=== PATIENT | female | born 1980 | race African-American/Black ===

== ENCOUNTER 2016-08-07 14:25 | Emergency (ER) | payer BC ==
--- NOTE | 2016-08-07 14:59 | ER Document Report ---
ED Medical Screen (RME) - General Chief Complaint: Dizziness Stated Complaint: PALPITATIONS Time seen by provider: 14:55 Mode of Arrival: Ambulatory Information source: Patient Notes: 36 yo female presents to ed for dizziness, rapid heartbeat started last night. She was at work became dizzy and heart rate went up to 108. No CaD hx no family hx of CAD TRAVEL OUTSIDE OF THE [place] IN LAST 30 DAYS: No - HPI Onset: Yesterday Onset/Duration: Intermittent Quality of pain: No pain Severity: None Pain Level: Denies Associated Symptoms: Dizzy/lightheaded, Other - rapid heart beat. When laying down she states her left side goes numb Exacerbated by: Supine Relieved by: Denies Similar symptoms previously: Yes Recently seen / treated by doctor: No - Related Data Smoking: Cigarettes - 10 cigs a day Frequency of alcohol use: Occasional Drug Abuse: None Allergies/Adverse Reactions: iodine Allergy (Verified 12/27/15 11:41) shrimp Allergy (Severe, Uncoded 12/27/15 11:41) swelling shell fish Allergy (Intermediate, Uncoded 12/27/15 11:41) swelling Past Medical History Past Surgical History: Reports: Hx Hysterectomy Physical Exam - Vital signs Vitals: Temp Pulse Resp BP Pulse Ox 98.0 F 92 16 127/83 H 99 08/07/16 14:50 08/07/16 14:50 08/07/16 14:50 08/07/16 14:50 08/07/16 14:50 Course - Vital Signs Vital signs: Temp Pulse Resp BP Pulse Ox 98.0 F 92 16 127/83 H 99 08/07/16 14:50 08/07/16 14:50 08/07/16 14:50 08/07/16 14:50 08/07/16 14:50
[2016-08-07 15:17] LABS: ABSOLUTE BASOPHILS # (AUTO) 0.1 10^3/uL (0.0-0.2); ABSOLUTE EOSINOPHILS # (AUTO) 0.2 10^3/uL (0.0-0.6); ABSOLUTE LYMPHOCYTES (AUTO) 2.2 10^3/uL (0.5-4.7); ABSOLUTE MONOCYTES (AUTO) 0.8 10^3/uL (0.1-1.4); ABSOLUTE NEUT (AUTO) 6.6 10^3/uL (1.7-8.2); BASOPHILS % (AUTO) 0.8 % (0-2); EOSINOPHILS % (AUTO) 1.5 % (0-6); HEMATOCRIT 42.3 % (36.0-47.0); HEMOGLOBIN 14.4 g/dL (12.0-15.5); HGB HCT DIFFERENCE 0.9; LYMPHOCYTES % (AUTO) 22.1 % (13-45); MEAN CORPUSCULAR HEMOGLOBIN 30.8 pg (27.0-33.4); MEAN CORPUSCULAR HGB CONC 34.1 g/dL (32.0-36.0); MEAN CORPUSCULAR VOLUME 90 fl (80-97); MONOCYTES % (AUTO) 7.9 % (3-13); RED BLOOD COUNT 4.69 10^6/uL (3.72-5.28); SEGMENTED NEUTROPHILS % (AUTO) 67.7 % (42-78); WHITE BLOOD COUNT 9.8 10^3/uL (4.0-10.5)
[2016-08-07 15:45] LABS: ALANINE AMINOTRANSFERASE 38 U/L (9-52); ALBUMIN 4.6 g/dL (3.5-5.0); ALKALINE PHOSPHATASE 66 U/L (38-126); ANION GAP 13 (5-19); ASPARTATE AMINO TRANSFERASE 22 U/L (14-36); BILIRUBIN,TOTAL 0.8 mg/dL (0.2-1.3); BLOOD UREA NITROGEN 10 mg/dL (7-20); CALCIUM 9.8 mg/dL (8.4-10.2); CARBON DIOXIDE 28 mmol/L (22-30); CHLORIDE 102 mmol/L (98-107); CREATINE KINASE 331 U/L (30-135); GLUCOSE 105 mg/dL (75-110); LIPASE 115.5 U/L (23-300); POTASSIUM 3.9 mmol/L (3.6-5.0); SODIUM 143.3 mmol/L (137-145); TOTAL PROTEIN 7.6 g/dL (6.3-8.2)
[2016-08-07 15:56] LABS: CREATINE KINASE MB 0.77 ng/mL (<4.55)
[2016-08-07 15:57] LABS: TROPONIN I < 0.012 ng/mL
[2016-08-07 16:08] LABS: APPEARANCE,URINE CLEAR; BILIRUBIN,URINE NEGATIVE (NEGATIVE); GLUCOSE, URINE NEGATIVE (NEGATIVE); KETONES,URINE NEGATIVE (NEGATIVE); LEUKOCYTE ESTERASE,URINE NEGATIVE (NEGATIVE); NITRITE,URINE NEGATIVE (NEGATIVE); PROTEIN,URINE NEGATIVE (NEGATIVE); URINE SPECIFIC GRAVITY 1.005; UROBILINOGEN,URINE NEGATIVE mg/dL (<2.0)
[2016-08-07] MEDS ORDERED: ACETAMINOPHEN 325 MG TABLET PO ONE (16:28)
--- NOTE | 2016-08-07 16:46 | ER Document Report ---
ED General Pain - General Chief Complaint: Palpitations Stated Complaint: PALPITATIONS Mode of Arrival: Ambulatory Information source: Patient Notes: Patient complains of dizziness with palpitations off and on today. Patient states that this morning she woke up at 4 AM not feeling well but then went back to sleep. Patient states that she gradually developed a headache today. Patient denies any fever or cough. Patient additionally reports some tingling off and on to her left upper extremity. Patient states around 1:30 today she developed some chest pain that only lasted momentarily while she was at work. Patient states that she had a previous episode of palpitations about 2 years ago for which they never found a cause. Patient currently is asymptomatic except for mild headache pain. TRAVEL OUTSIDE OF THE [place] IN LAST 30 DAYS: No - HPI Onset: This morning Onset/Duration: Gradual Quality of pain: No pain Pain Level: Denies Exacerbated by: Denies Relieved by: Denies Similar symptoms previously: Yes Recently seen / treated by doctor: No - Related Data Allergies/Adverse Reactions: iodine Allergy (Verified 12/27/15 11:41) shrimp Allergy (Severe, Uncoded 12/27/15 11:41) swelling shell fish Allergy (Intermediate, Uncoded 12/27/15 11:41) swelling Past Medical History - General Information source: Patient - Social History Smoking Status: Current Every Day Smoker Chew tobacco use (# tins/day): No Frequency of alcohol use: Occasional Drug Abuse: None Occupation: retail Family History: Reviewed & Not Pertinent Patient has suicidal ideation: No Patient has homicidal ideation: No - Past Medical History Cardiac Medical History: Reports: Hx Hypertension, Other - Episode of palpitations 2 years ago GI Medical History: Reports: Hx Gastroesophageal Reflux Disease Past Surgical History: Reports: Hx Hysterectomy Review of Systems - Review of Systems Constitutional: No symptoms reported. denies: Fever, Recent illness EENT: No symptoms reported. denies: Throat pain Cardiovascular: Chest pain, Palpitations, Dizziness Respiratory: No symptoms reported. denies: Cough, Short of breath Gastrointestinal: No symptoms reported. denies: Abdominal pain, Diarrhea, Nausea, Vomiting Genitourinary: No symptoms reported Female Genitourinary: No symptoms reported Musculoskeletal: No symptoms reported. denies: Back pain, Neck pain Skin: No symptoms reported Hematologic/Lymphatic: No symptoms reported Neurological/Psychological: Headaches Physical Exam - Vital signs Vitals: Temp Pulse Resp BP Pulse Ox 98.0 F 92 16 127/83 H 99 08/07/16 14:50 08/07/16 14:50 08/07/16 14:50 08/07/16 14:50 08/07/16 14:50 - General General appearance: Appears well, Alert In distress: None - HEENT Head: Normocephalic, Atraumatic Eyes: Normal Conjunctiva: Normal Nasal: Normal Mouth/Lips: Normal Mucous membranes: Normal Pharynx: Normal. No: Exudate, Tonsillar hypertrophy Neck: Normal, Supple. No: Lymphadenopathy, Thyromegally - Respiratory Respiratory status: No respiratory distress Chest status: Nontender Breath sounds: Normal. No: Rales, Rhonchi, Stridor, Wheezing Chest palpation: Normal - Cardiovascular Rhythm: Regular Heart sounds: S1 appreciated, S2 appreciated Murmur: No - Abdominal Inspection: Normal Distension: No distension Bowel sounds: Normal Tenderness: Nontender Organomegaly: No organomegaly - Back Back: Normal, Nontender. No: CVA tenderness, Vertebra tenderness - Extremities General upper extremity: Normal inspection, Normal strength General lower extremity: Normal inspection, Normal strength - Neurological Neuro grossly intact: Yes Cognition: Normal Orientation: AAOx4 Sarah Coma Scale Eye Opening: Spontaneous Sarah Coma Scale Verbal: Oriented [place] Coma Scale Motor: Obeys Commands Sarah Coma Scale Total: 15 - Psychological Associated symptoms: Normal affect, Normal mood - Skin Skin Temperature: Warm Skin Moisture: Dry Skin Color: Normal Course - Re-evaluation Re-evalutation: 08/07/16 17:58 Patient continues pain-free at this time.The patient has atypical chest pain as the patient's chest pain is not suggestive of pulmonary embolus, cardiac ischemia, aortic dissection, or other serious etiology. Given the extremely low risk of these diagnoses for the test in evaluation for these possibilities does not appear to be indicated at this time. Patient has been instructed to return if the symptoms worsen or change in any way. Low likelihood for PE given PERC criteria. HEART score 1, H-0, E-0, A-0, R-1 (HTN, smoker), T-0. - Vital Signs Vital signs: Temp Pulse Resp BP Pulse Ox 98.1 F 93 15 128/77 H 100 08/07/16 18:10 08/07/16 18:10 08/07/16 18:10 08/07/16 18:10 08/07/16 18:10 - Laboratory Result Diagrams: 08/07/16 15:00 08/07/16 15:00 Laboratory results interpreted by me: 08/07/16 15:00 Creatine Kinase 331 H 08/07/16 18:00 Labs- Entire Visit 08/07/16 08/07/16 08/07/16 15:00 15:00 15:00 WBC 9.8 RBC 4.69 Hgb 14.4 Hct 42.3 MCV 90 MCH 30.8 MCHC 34.1 RDW 13.0 Plt Count 332 Seg Neutrophils % 67.7 Lymphocytes % 22.1 Monocytes % 7.9 Eosinophils % 1.5 Basophils % 0.8 Absolute Neutrophils 6.6 Absolute Lymphocytes 2.2 Absolute Monocytes 0.8 Absolute Eosinophils 0.2 Absolute Basophils 0.1 Sodium 143.3 Potassium 3.9 Chloride 102 Carbon Dioxide 28 Anion Gap 13 BUN 10 Creatinine 0.90 Est GFR ( Amer) > 60 Est GFR (Non-Af Amer) > 60 Glucose 105 Calcium 9.8 Total Bilirubin 0.8 Direct Bilirubin 0.0 AST 22 ALT 38 Alkaline Phosphatase 66 Creatine Kinase 331 H CK-MB (CK-2) Troponin I Total Protein 7.6 Albumin 4.6 Lipase 115.5 TSH Serum HCG, Qual NEGATIVE Urine Color Urine Appearance Urine pH Ur Specific [place] Urine Protein Urine Glucose (UA) Urine Ketones Urine Blood Urine Nitrite Urine Bilirubin Urine Urobilinogen Ur Leukocyte Esterase Urine WBC (Auto) Urine Bacteria (Auto) Squamous Epi Cells Auto Urine Ascorbic Acid Urine Opiates Screen Urine Methadone Screen Ur Barbiturates Screen Ur Phencyclidine Scrn Ur Amphetamines Screen U Benzodiazepines Scrn Urine Cocaine Screen U Marijuana (THC) Screen 08/07/16 08/07/16 08/07/16 15:00 15:00 15:44 WBC RBC Hgb Hct MCV MCH MCHC RDW Plt Count Seg Neutrophils % Lymphocytes % Monocytes % Eosinophils % Basophils % Absolute Neutrophils Absolute Lymphocytes Absolute Monocytes Absolute Eosinophils Absolute Basophils Sodium Potassium Chloride Carbon Dioxide Anion Gap BUN Creatinine Est GFR ( Amer) Est GFR (Non-Af Amer) Glucose Calcium Total Bilirubin Direct Bilirubin AST ALT Alkaline Phosphatase Creatine Kinase CK-MB (CK-2) 0.77 Troponin I < 0.012 Total Protein Albumin Lipase TSH 0.96 Serum HCG, Qual Urine Color STRAW Urine Appearance CLEAR Urine pH 7.0 Ur Specific [place] 1.005 Urine Protein NEGATIVE Urine Glucose (UA) NEGATIVE Urine Ketones NEGATIVE Urine Blood NEGATIVE Urine Nitrite NEGATIVE Urine Bilirubin NEGATIVE Urine Urobilinogen NEGATIVE Ur Leukocyte Esterase NEGATIVE Urine WBC (Auto) 0 Urine Bacteria (Auto) TRACE Squamous Epi Cells Auto 1 Urine Ascorbic Acid NEGATIVE Urine Opiates Screen Urine Methadone Screen Ur Barbiturates Screen Ur Phencyclidine Scrn Ur Amphetamines Screen U Benzodiazepines Scrn Urine Cocaine Screen U Marijuana (THC) Screen 08/07/16 15:44 WBC RBC Hgb Hct MCV MCH MCHC RDW Plt Count Seg Neutrophils % Lymphocytes % Monocytes % Eosinophils % Basophils % Absolute Neutrophils Absolute Lymphocytes Absolute Monocytes Absolute Eosinophils Absolute Basophils Sodium Potassium Chloride Carbon Dioxide Anion Gap BUN Creatinine Est GFR ( Amer) Est GFR (Non-Af Amer) Glucose Calcium Total Bilirubin Direct Bilirubin AST ALT Alkaline Phosphatase Creatine Kinase CK-MB (CK-2) Troponin I Total Protein Albumin Lipase TSH Serum HCG, Qual Urine Color Urine Appearance Urine pH Ur Specific [place] Urine Protein Urine Glucose (UA) Urine Ketones Urine Blood Urine Nitrite Urine Bilirubin Urine Urobilinogen Ur Leukocyte Esterase Urine WBC (Auto) Urine Bacteria (Auto) Squamous Epi Cells Auto Urine Ascorbic Acid Urine Opiates Screen NEGATIVE Urine Methadone Screen NEGATIVE Ur Barbiturates Screen NEGATIVE Ur Phencyclidine Scrn NEGATIVE Ur Amphetamines Screen NEGATIVE U Benzodiazepines Scrn NEGATIVE Urine Cocaine Screen NEGATIVE U Marijuana (THC) Screen NEGATIVE - Diagnostic Test Radiology reviewed: Reports reviewed - EKG Interpretation by Me EKG shows normal: Sinus rhythm Rate: Normal Rhythm: NSR Discharge - Discharge Clinical Impression: Palpitations Chest pain Qualifiers: Chest pain type: unspecified Qualified Code(s): R07.9 - Chest pain, unspecified Headache Qualifiers: Headache type: unspecified Headache chronicity pattern: acute headache Intractability: not intractable Qualified Code(s): R51 - Headache Condition: Stable Disposition: HOME, SELF-CARE Instructions: Palpitations (Irregular or Rapid Heartrate) ([facility]), Headache ([facility]) , Chest Pain of Unclear Cause ([facility]) Additional Instructions: Return immediately for any new or worsening symptoms Followup with your primary care provider ([facility]), call tomorrow to make a followup appointment Your primary doctor can make a referral for 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 Avoid heavy lifting at work. Forms: Restricted Release, Return to Work Referrals: PANKAJ FLORES MD [ACTIVE STAFF] - Follow up in 3-5 days
[2016-08-07 17:25] LABS: URINE BARBITURATES SCREEN NEGATIVE; URINE METHADONE SCREEN NEGATIVE; URINE PHENCYCLIDINE SCREEN NEGATIVE
[2016-08-07 18:16] VITALS: BP 128/77
--- NOTE | 2016-08-07 19:49 | EKG REPORT ---
SEVERITY:- NORMAL ECG - SINUS RHYTHM : Confirmed by: Dee Molina 07-Aug-2016 19:48:40
== END 2016-08-07 18:12 | disposition home or self-care (01) ==
LOC: ER 14:25
DX: R00.2 Palpitations (principal); R07.9 Chest pain, unspecified; R51 Headache; F17.210 Nicotine dependence, cigarettes, uncomplicated
CPT/HCPCS: 36415; 71020; 80053; 80307; 81001; 82550; 82553; 83690; 84443; 84484; 84703; 85025; 93005; 93010; 99285